=== PATIENT | male | born 1945 | race Caucasian/White ===

== ENCOUNTER 2017-02-19 07:42 | Day surgery (SDC) | payer MEDICARE, BC ==
[2017-02-19] MEDS ORDERED: Lactated Ringers 1,000 ML IV SCH ×2 (07:45→10:00)
[2017-02-19] MEDS ORDERED: Propofol 200 MG/20 ML SDV ONE (09:05)
[2017-02-19] MEDS ORDERED: fentaNYL 100 MCG/2 ML SDV ONE (09:06)
[2017-02-19 11:59] VITALS: BP 123/72
--- NOTE | 2017-02-20 07:04 | OR ---
DATE OF PROCEDURE: 02/19/2017 PREOPERATIVE DIAGNOSIS: History of adenomatous colon polyps. POSTOPERATIVE DIAGNOSIS: Diverticulosis, multiple colon polyps, and history of adenomatous colon polyps. PROCEDURE: Colonoscopy to the cecum with biopsy resection of polyps 75 cm from anal verge, right colon, 2 in the cecum, 2 in the proximal right colon. ANESTHESIA: IV anesthesia with monitored anesthesia care. INDICATION: This 71-year-old white male is referred for a colonoscopy because of a history of adenomatous colon polyps. His last colonoscopic exam he says was done 3 years ago. I counseled him for the procedure including risks and alternatives and he gave his informed consent to proceed. DESCRIPTION OF PROCEDURE: The patient was placed in the left lateral decubitus position. IV anesthesia was administered by the Anesthesia Service. Time-out was held. A rectal exam was performed which showed a large smooth prostate. The flexible video Olympus colonoscope was introduced through his anus, up his rectum, and out his colon all the way to the cecum. En route, we saw multiple left-sided diverticula, there was no bleeding or inflammation associated with them. Additionally at 35 cm from anal verge we saw a small polyp which was removed with the biopsy forceps. Also in the mid right colon we saw another small polyp which was removed with the biopsy forceps. In the cecum we saw 2 polyps which were near each other. They were removed with the biopsy forceps and sent to the laboratory as one specimen. The scope was then slowly withdrawn and examining the mucosa throughout. In the proximal right colon we saw two more polyps adjacent to each other and they were removed with the biopsy forceps and sent to the laboratory as one specimen. The scope was withdrawn further with no other additional new lesion seen. The scope was retroflexed in the rectum with the distal rectum appearing unremarkable. The scope was straightened and removed. He tolerated the procedure well. Isael Slaughter MD /[id number]
== END 2017-02-19 11:20 | disposition home or self-care (01) ==
LOC: JP.SDS 07:42
PROVIDERS: ATTEND Surgery
DX: Z12.11 Encounter for screening for malignant neoplasm of colon (principal); D12.0 Benign neoplasm of cecum; D12.6 Benign neoplasm of colon, unspecified; K57.30 Diverticulosis of large intestine without perforation or abscess without bleeding; I10 Essential (primary) hypertension; K21.9 Gastro-esophageal reflux disease without esophagitis
CPT/HCPCS: 45380; J2704; J3010; J7120; 88305

== ENCOUNTER 2018-03-13 06:21 | Day surgery (SDC) | payer MEDICARE, BC ==
[2018-03-13] MEDS ORDERED: Lactated Ringers 1,000 ML IV SCH (07:00)
[2018-03-13] MEDS ORDERED: fentaNYL 100 MCG/2 ML SDV ONE (07:34)
[2018-03-13] MEDS ORDERED: Propofol 200 MG/20 ML SDV ONE (07:34)
[2018-03-13] MEDS ORDERED: Midazolam 1 MG/ML 2 ML SDV ONE (07:35)
[2018-03-13 09:32] VITALS: BP 124/72
--- NOTE | 2018-03-13 13:55 | OR ---
DATE OF PROCEDURE: 03/13/2018 PREOPERATIVE DIAGNOSIS: History of colon polyps. POSTOPERATIVE DIAGNOSES: 1. Diverticulosis. 2. Two small colon polyps, transverse colon and rectum. 3. History of colon polyps. PROCEDURES PERFORMED: Colonoscopy to the cecum with biopsy resection of 2 small colon polyps. ANESTHESIA: IV anesthesia with monitored anesthesia care. INDICATION: This 72-year-old white male is referred for a colonoscopy because of history of colon polyps. He says he had multiple colon polyps removed about a year ago. I counseled him for the procedure including risks and alternatives, and he gave his informed consent to proceed. DESCRIPTION OF PROCEDURE: The patient was placed in the left lateral decubitus position. IV anesthesia was administered by the Anesthesia Service. Time-out was held. A rectal exam was performed, which was unremarkable. The flexible video Olympus colonoscope was introduced through his anus, up his rectum, and out his colon, all the way to the cecum. En route, we saw multiple left-sided diverticula. There was no bleeding or inflammation associated with them. In addition, in the transverse colon, we saw a smaller polyp, which was removed with the biopsy forceps. Once the cecum was reached, the scope was slowly withdrawn, examining the mucosa throughout. No additional mucosal abnormalities were noted until we reached the midportion the rectum. Here, another small polyp was seen, which was removed with a couple of bites of biopsy forceps. The scope was retroflexed in the rectum with the distal rectum appearing unremarkable. The scope was straightened and removed. He tolerated the procedure well. Isael Slaughter MD /[id number]
== END 2018-03-13 09:30 | disposition home or self-care (01) ==
LOC: JP.SDS 06:21
PROVIDERS: ATTEND Surgery
DX: Z09 Encounter for follow-up examination after completed treatment for conditions other than malignant neoplasm (principal); D12.3 Benign neoplasm of transverse colon; D12.8 Benign neoplasm of rectum; I10 Essential (primary) hypertension; K57.30 Diverticulosis of large intestine without perforation or abscess without bleeding; Z86.010 Personal history of colon polyps; Z79.899 Other long term (current) drug therapy
CPT/HCPCS: 45380; J2250; J2704; J3010; J7120; 88305

== ENCOUNTER 2019-07-15 07:21 | Day surgery (SDC) | payer MEDICARE ==
[2019-07-15] MEDS ORDERED: Sodium Chloride 0.9% 1,000 ML IV SCH (08:00)
[2019-07-15] MEDS ORDERED: Propofol 200 MG/20 ML SDV ONE (08:46)
[2019-07-15] MEDS ORDERED: fentaNYL 100 MCG/2 ML SDV ONE (08:46)
[2019-07-15 10:40] VITALS: BP 135/74; PULSE 54
--- NOTE | 2019-07-15 13:11 | OR ---
DATE OF PROCEDURE: 07/15/2019 SURGEON: Vikash Moore MD PROCEDURE: Esophagogastroduodenoscopy. FINDINGS: Erythema consistent with thrush in distal esophagus. COMPLICATIONS: None. COUNTER INTELLIGENCE TECHNICIAN: None. ANESTHESIA: MAC. PREOPERATIVE DIAGNOSIS: Dysphagia. POSTOPERATIVE DIAGNOSIS: Dysphagia. RISKS: Risks, benefits, alternatives, and limitations including, but not limited to infection, bleeding, and perforation were explained to the patient, who wished to proceed. PROCEDURE IN DETAIL: The patient was placed in left lateral decubitus position. The EGD scope was introduced and advanced atraumatically to second part of the duodenum. Scope was brought back and retroflexed. Moderate sliding hernia was noted. At the GE junction, there was significant erythema and white plaque-like area consistent with probably combination of thrush and/or esophagitis. This was biopsied at least 8 times using cold biopsy forceps. The remainder of esophagus was normal. The patient will be started prophylactically on nystatin. Vikash Moore MD /[id number]
== END 2019-07-15 10:30 | disposition home or self-care (01) ==
LOC: JP.SDS 07:21
PROVIDERS: ATTEND Surgery
DX: R13.10 Dysphagia, unspecified (principal); C16.0 Malignant neoplasm of cardia; K22.711 Barrett's esophagus with high grade dysplasia; K44.9 Diaphragmatic hernia without obstruction or gangrene; I10 Essential (primary) hypertension
CPT/HCPCS: 88305; J2704; J3010; J7030

== ENCOUNTER 2019-10-25 14:12 | Emergency (ER) | payer MEDICARE ==
[2019-10-25 14:29] VITALS: BP 128/52; PULSE 61
--- NOTE | 2019-10-25 14:50 | EDM.PDOC ---
ED HPI GENERAL MEDICAL PROBLEM - General Chief Complaint: Fever Stated Complaint: FEVER/ILLNESS- SENT FROM [facility] IN[facility]US[facility] Time Seen by Provider: 10/25/19 14:30 Source of Information: Reports: Patient, Provider History Limitations: Reports: No Limitations - History of Present Illness INITIAL COMMENTS - FREE TEXT/NARRATIVE: 73-year-old male with esophageal cancer, received his last treatment of chemotherapy and radiation one week ago. He has difficulty swallowing so goes to the infusion center on a regular basis. He thinks he is improving, he is able to swallow some water now but was in the infusion center this afternoon getting some IV fluids when they measured a temperature of 102.8. He feels weak but he always feels weak, he had some mild chills as well. Denies any pain or shortness of breath. They called the oncologist and they recommended him coming to the emergency room. On arrival he still feels weak but otherwise feels his baseline and his temperature is now 99.7. He denies shortness of breath, cough, cold symptoms, nausea vomiting or abdominal pain. Onset: Unknown/Unsure Associated Symptoms: Reports: Fever/Chills, Malaise, Weakness denies Pain Score (Numeric/FACES): 0 - Related Data Allergies Allergy/AdvReac Type Severity Reaction Status Date / Time No Known Allergies Allergy Verified 10/25/19 14:29 Home Meds: Home Meds Widen-3 Fatty Acids [Widen-3] 1,000 mg PO DAILY 02/10/14 [History] Lutein 20 mg PO DAILY 02/14/14 [History] Past Medical History - Past Health History Medical/Surgical History: Denies Medical/Surgical History HEENT History: Reports: Cataract, Hard of Hearing, Macular Degeneration Cardiovascular History: Reports: Hypertension Gastrointestinal History: Reports: Colon Polyp, GERD Musculoskeletal History: Reports: Back Pain, Chronic, Fracture, Osteoarthritis Other Musculoskeletal History: left rot.cuff no surg Oncologic (Cancer) History: Reports: Basal Cell Carcinoma, Esophageal - Infectious Disease History Infectious Disease History: Reports: Chicken Pox, Measles, Mumps - Past Surgical History HEENT Surgical History: Reports: Cataract Surgery, Other (See Below) Other HEENT Surgeries/Procedures: esophageal CA Cardiovascular Surgical History: Reports: None GI Surgical History: Reports: Colonoscopy Musculoskeletal Surgical History: Reports: None Social & Family History - Family History Family Medical History: Noncontributory - Tobacco Use Smoking Status *Q: Never Smoker Second Hand Smoke Exposure: No - Caffeine Use Caffeine Use: Reports: None Other Caffeine Use: 4 cups - Recreational Drug Use Recreational Drug Use: No ED ROS GENERAL - Review of Systems Review Of Systems: See Below Constitutional: Reports: Fever, Malaise, Decreased Appetite HEENT: Reports: Throat Pain (When swallowing, it is improving) Respiratory: Denies: Shortness of Breath, Cough GI/Abdominal: Denies: Abdominal Pain, Nausea, Vomiting Neurological: Reports: Weakness. Denies: Headache ED EXAM, GENERAL - Physical Exam Exam: See Below Exam Limited By: No Limitations General Appearance: Alert, No Apparent Distress, Other (Patient does appear tired but in no distress) Eye Exam: Bilateral Eye: Normal Inspection (No jaundice) Head: Atraumatic Respiratory/Chest: No Respiratory Distress, Lungs Clear Cardiovascular: Regular Rate, Rhythm. No: Tachycardia GI/Abdominal: Soft, Non-Tender Extremities: Normal Inspection. No: Pedal Edema Neurological: Alert, Oriented Psychiatric: Flat Affect Skin Exam: Warm, Dry Course - Vital Signs Last Recorded V/S: Last Vital Signs Temp 100.0 F 10/25/19 16:06 Pulse 61 10/25/19 14:28 Resp 16 10/25/19 14:28 BP 128/52 L 10/25/19 14:28 Pulse Ox 98 10/25/19 14:28 - Orders/Labs/Meds Orders: Active Orders 24 hr Category Date Time Status CULTURE BLOOD [BC] Stat Lab 10/25/19 15:00 Received Labs: Laboratory Tests 10/25/19 10/25/19 10/25/19 Range/Units 15:00 15:00 15:00 WBC 4.2 L (4.5-11.0) K/uL RBC 3.22 L (4.30-5.90) M/uL Hgb 10.0 L (12.0-15.0) g/dL Hct 30.7 L (40.0-54.0) % MCV 95 (80-98) fL MCH 31 (27-31) pg MCHC 33 (32-36) % Plt Count 130 L (150-400) K/uL Neut % (Auto) 78 H (36-66) % Lymph % (Auto) 5 L (24-44) % [place] % (Auto) 17 H (2-6) % Eos % (Auto) 1 L (2-4) % Baso % (Auto) 1 (0-1) % Sodium 131 L (140-148) mmol/L Potassium 3.8 (3.6-5.2) mmol/L Chloride 96 L (100-108) mmol/L Carbon Dioxide 24 (21-32) mmol/L Anion Gap 14.8 H (5.0-14.0) mmol/L BUN 23 H (7-18) mg/dL Creatinine 0.8 (0.8-1.3) mg/dL Est Cr Clr Drug Dosing 78.83 mL/min Estimated GFR (MDRD) > 60 (>60) Glucose 130 H (74-106) mg/dL Lactic Acid 2.0 (0.4-2.0) mmol/L Calcium 8.3 L (8.5-10.1) mg/dL Total Bilirubin 0.5 (0.2-1.0) mg/dL AST 71 H (15-37) U/L ALT 79 H (12-78) U/L Alkaline Phosphatase 93 (46-116) U/L Total Protein 6.8 (6.4-8.2) g/dL Albumin 2.3 L (3.4-5.0) g/dL Globulin 4.5 H (2.3-3.5) g/dL Albumin/Globulin Ratio 0.5 L (1.2-2.2) Meds: Medications Discontinued Medications Generic Name Dose Route Start Last Admin Trade Name Freq PRN Reason Stop Dose Admin Lactated Ringer's 1,000 mls @ 1,000 mls/hr 10/25/19 15:15 10/25/19 15:06 Ringers, Lactated IV 1,000 mls/hr ASDIRECTED [facility] Administration - Re-Assessments/Exams Free Text/Narrative Re-Assessment/Exam: 10/25/19 14:57 Patient was sent for a febrile workup so this was initiated. Blood cultures were drawn from the port, CBC CMP were obtained as well as lactic acid and two- view chest x-ray. Patient is now however afebrile with normal vitals so this will be reassessed when his lab and x-ray are done. 10/25/19 15:06 Patient was taken back for a two-view chest x-ray without difficulty, and in and out of the chair easily and can ambulate. His x-ray looks negative. 10/25/19 16:33 Radiology actually commented that there was a possible small perihilar infiltrate in the right side so the patient was given a course of Zithromax. This was discussed and approved by oncology. White count was 4300. Lactic acid normal at 2.0, and a repeat temperature on discharge was 99 9. Patient felt his normal baseline. He will return if worsening. Departure - Departure Time of Disposition: 16:58 Disposition: Home, Self-Care 01 Clinical Impression: Dehydration Pneumonia Qualifiers: Pneumonia type: due to unspecified organism Laterality: right Lung location: middle lobe of lung Qualified Code(s): J18.9 - Pneumonia, unspecified organism - Discharge Information Instructions: Community-Acquired Pneumonia, Adult, [id number] Referrals: Christopher Sherwood MD [Primary Care Provider] - Forms: ED Department Discharge Care Plan Goals: Continue your current medications and take Zithromax one pill daily for the next 4 days. Recheck as scheduled or return sooner if not improving satisfactorily. Sepsis Event Note - Evaluation Sepsis Screening Result: No Definite Risk - Focused Exam Vital Signs: Vital Signs Temp Pulse Resp BP Pulse Ox 10/25/19 16:06 100.0 F 10/25/19 14:28 99.6 F 61 16 128/52 L 98 Date Exam was Performed: 10/25/19 Time Exam was Performed: 17:19 - My Orders Last 24 Hours: My Active Orders 10/25/19 15:00 CULTURE BLOOD [BC] Stat - Assessment/Plan Last 24 Hours: My Active Orders 10/25/19 15:00 CULTURE BLOOD [BC] Stat
[2019-10-25] MEDS ORDERED: Lactated Ringers 1,000 ML IV SCH ×2 (15:00→15:15)
--- NOTE | 2019-10-25 15:44 | CR ---
CHEST: 2 view CLINICAL HISTORY:Recent chemotherapy, fever COMPARISON:CT 07/23/2019 FINDINGS: Lungs are hyperaerated. Heart size and pulmonary vascularity are normal. There are atherosclerotic changes in the aorta.. Patient has an [id number] catheter from right jugular approach. Tip is in superior vena cava is a minimal patchy density in the right perihilar region. Small pneumonia is not excluded. Impression: Changes of COPD Small patchy density in the right perihilar region may represent a small pneumonic infiltrate
== END 2019-10-25 16:58 | disposition home or self-care (01) ==
LOC: JP.ED 14:12
DX: E86.0 Dehydration (principal); J18.9 Pneumonia, unspecified organism; I10 Essential (primary) hypertension; M19.90 Unspecified osteoarthritis, unspecified site; Z79.899 Other long term (current) drug therapy
CPT/HCPCS: 36415; 71046; 80053; 83605; 85025; 87040; 96360; 99285; J7120; 99284

== ENCOUNTER 2019-10-30 11:42 | Emergency (ER) | payer MEDICARE ==
[2019-10-30 12:20] VITALS: BP 122/62; PULSE 111
--- NOTE | 2019-10-30 13:08 | EDM.PDOC ---
ED HPI GENERAL MEDICAL PROBLEM - General Chief Complaint: General Stated Complaint: WEAKNESS Time Seen by Provider: 10/30/19 13:08 Source of Information: Reports: Patient History Limitations: Reports: No Limitations - History of Present Illness INITIAL COMMENTS - FREE TEXT/NARRATIVE: 73 years old male patient with history of esophageal cancer status post chemotherapy and radiotherapy, presents to the ER with a chief complaint of generalized weakness. Patient was seen last week, , diagnoses pneumonia and sent home was 5 day course of azithromycin. Last dose was yesterday. Stated his cough is about the same mild dry cough. Slightly short of breath. Denies any chest pain. Denies any fever. Denies any abdominal pain. He has chronic diarrhea. Denies any urinary symptom. For the last couple days has been feeling very weak. Denies any focal weakness or numbness anywhere. denies Pain Score (Numeric/FACES): 0 - Related Data Allergies Allergy/AdvReac Type Severity Reaction Status Date / Time No Known Allergies Allergy Verified 10/30/19 11:54 Home Meds: Home Meds Traer-3 Fatty Acids [Traer-3] 1,000 mg PO DAILY 02/10/14 [History] Lutein 20 mg PO DAILY 02/14/14 [History] Past Medical History - Past Health History Medical/Surgical History: Denies Medical/Surgical History HEENT History: Reports: Cataract, Hard of Hearing, Macular Degeneration Cardiovascular History: Reports: Hypertension Respiratory History: Reports: Other (See Below) Other Respiratory History: recent pneumonia Gastrointestinal History: Reports: Colon Polyp, GERD Other Gastrointestinal History: feeding tube. Musculoskeletal History: Reports: Back Pain, Chronic, Fracture, Osteoarthritis Other Musculoskeletal History: left rot.cuff no surg Oncologic (Cancer) History: Reports: Basal Cell Carcinoma, Esophageal - Infectious Disease History Infectious Disease History: Reports: Chicken Pox, Measles, Mumps - Past Surgical History HEENT Surgical History: Reports: Cataract Surgery, Other (See Below) Other HEENT Surgeries/Procedures: esophageal CA Cardiovascular Surgical History: Reports: None GI Surgical History: Reports: Colonoscopy, EGD Musculoskeletal Surgical History: Reports: None Social & Family History - Family History Family Medical History: Noncontributory - Tobacco Use Smoking Status *Q: Never Smoker Second Hand Smoke Exposure: No - Caffeine Use Caffeine Use: Reports: Coffee Other Caffeine Use: 4 cups - Recreational Drug Use Recreational Drug Use: No ED ROS GENERAL - Review of Systems Review Of Systems: Comprehensive ROS is negative, except as noted in HPI. ED EXAM, GENERAL - Physical Exam Exam: See Below Exam Limited By: No Limitations General Appearance: Alert, WD/WN, No Apparent Distress Nose: Normal Inspection, Normal Mucosa, No Blood Throat/Mouth: Normal Inspection, Normal Lips, Normal Teeth, Normal Gums, Normal Oropharynx, Normal Voice, No Airway Compromise Head: Atraumatic, Normocephalic Neck: Normal Inspection, Supple, Non-Tender, Full Range of Motion Respiratory/Chest: No Respiratory Distress, Lungs Clear, Normal Breath Sounds, No Accessory Muscle Use, Chest Non-Tender Cardiovascular: Normal Peripheral Pulses, Regular Rate, Rhythm, No Edema, No Gallop, No JVD, No Murmur, No Rub GI/Abdominal: Normal Bowel Sounds, Soft, Non-Tender, No Organomegaly, No Distention, No Abnormal Bruit, No Mass, Other (Feeding nightly place) Extremities: Normal Inspection, Normal Range of Motion, Non-Tender, Normal Capillary Refill, No Pedal Edema Neurological: Alert, Oriented, CN II-XII Intact, Normal Cognition, Normal Gait, Normal Reflexes, No Motor/Sensory Deficits Skin Exam: Warm, Dry, Intact, Normal Color, No Rash Course - Vital Signs Last Recorded V/S: Last Vital Signs Temp 37.0 C 10/30/19 12:22 Pulse 111 H 10/30/19 12:22 Resp 14 10/30/19 12:22 BP 122/62 10/30/19 12:22 Pulse Ox 97 10/30/19 12:22 - Orders/Labs/Meds Labs: Laboratory Tests 10/30/19 10/30/19 10/30/19 Range/Units 13:09 13:39 13:39 WBC 3.2 L (4.5-11.0) K/uL RBC 2.77 L (4.30-5.90) M/uL Hgb 8.6 L (12.0-15.0) g/dL Hct 26.2 L (40.0-54.0) % MCV 95 (80-98) fL MCH 31 (27-31) pg MCHC 33 (32-36) % Plt Count 135 L (150-400) K/uL Neut % (Auto) 75 H (36-66) % Lymph % (Auto) 9 L (24-44) % Mcleod % (Auto) 12 H (2-6) % Eos % (Auto) 3 (2-4) % Baso % (Auto) 1 (0-1) % Sodium 131 L (140-148) mmol/L Potassium 3.7 (3.6-5.2) mmol/L Chloride 97 L (100-108) mmol/L Carbon Dioxide 24 (21-32) mmol/L Anion Gap 13.7 (5.0-14.0) mmol/L BUN 17 (7-18) mg/dL Creatinine 0.7 L (0.8-1.3) mg/dL Est Cr Clr Drug Dosing 91.18 mL/min Estimated GFR (MDRD) > 60 (>60) Glucose 100 (74-106) mg/dL Lactic Acid 1.8 (0.4-2.0) mmol/L Calcium 7.8 L (8.5-10.1) mg/dL Magnesium 1.9 (1.8-2.4) mg/dL Total Bilirubin 0.4 (0.2-1.0) mg/dL AST 109 H (15-37) U/L ALT 132 H (12-78) U/L Alkaline Phosphatase 98 (46-116) U/L Troponin I < 0.017 (0.000-0.056) ng/mL Total Protein 6.6 (6.4-8.2) g/dL Albumin 1.9 L (3.4-5.0) g/dL Globulin 4.7 H (2.3-3.5) g/dL Albumin/Globulin Ratio 0.4 L (1.2-2.2) TSH, Ultra Sensitive 0.543 (0.358-3.740) uIU/mL Urine Color (YELLOW) Urine Appearance (CLEAR) Urine pH (5.0-8.0) Ur Specific [place] (1.008-1.030) Urine Protein (NEGATIVE) mg/dL Urine Glucose (UA) (NEGATIVE) mg/dL Urine Ketones (NEGATIVE) mg/dL Urine Occult Blood (NEGATIVE) Urine Nitrite (NEGATIVE) Urine Bilirubin (NEGATIVE) Urine Urobilinogen (0.2-1.0) EU/dL Ur Leukocyte Esterase (NEGATIVE) Urine RBC (0-5) Urine WBC (0-5) Ur Epithelial Cells Amorphous Sediment Urine Bacteria Urine Mucus 10/30/19 Range/Units 14:15 WBC (4.5-11.0) K/uL RBC (4.30-5.90) M/uL Hgb (12.0-15.0) g/dL Hct (40.0-54.0) % MCV (80-98) fL MCH (27-31) pg MCHC (32-36) % Plt Count (150-400) K/uL Neut % (Auto) (36-66) % Lymph % (Auto) (24-44) % Mcleod % (Auto) (2-6) % Eos % (Auto) (2-4) % Baso % (Auto) (0-1) % Sodium (140-148) mmol/L Potassium (3.6-5.2) mmol/L Chloride (100-108) mmol/L Carbon Dioxide (21-32) mmol/L Anion Gap (5.0-14.0) mmol/L BUN (7-18) mg/dL Creatinine (0.8-1.3) mg/dL Est Cr Clr Drug Dosing mL/min Estimated GFR (MDRD) (>60) Glucose (74-106) mg/dL Lactic Acid (0.4-2.0) mmol/L Calcium (8.5-10.1) mg/dL Magnesium (1.8-2.4) mg/dL Total Bilirubin (0.2-1.0) mg/dL AST (15-37) U/L ALT (12-78) U/L Alkaline Phosphatase (46-116) U/L Troponin I (0.000-0.056) ng/mL Total Protein (6.4-8.2) g/dL Albumin (3.4-5.0) g/dL Globulin (2.3-3.5) g/dL Albumin/Globulin Ratio (1.2-2.2) TSH, Ultra Sensitive (0.358-3.740) uIU/mL Urine Color Yellow (YELLOW) Urine Appearance Clear (CLEAR) Urine pH 6.5 (5.0-8.0) Ur Specific [place] 1.015 (1.008-1.030) Urine Protein Trace H (NEGATIVE) mg/dL Urine Glucose (UA) Negative (NEGATIVE) mg/dL Urine Ketones Negative (NEGATIVE) mg/dL Urine Occult Blood Negative (NEGATIVE) Urine Nitrite Negative (NEGATIVE) Urine Bilirubin Negative (NEGATIVE) Urine Urobilinogen >=8.0 H (0.2-1.0) EU/dL Ur Leukocyte Esterase Negative (NEGATIVE) Urine RBC 0-5 (0-5) Urine WBC 0-5 (0-5) Ur Epithelial Cells Rare Amorphous Sediment Not seen Urine Bacteria Few Urine Mucus Moderate Meds: Medications Discontinued Medications Generic Name Dose Route Start Last Admin Trade Name Andrae PRN Reason Stop Dose Admin Sodium Chloride 1,000 mls @ 999 mls/hr 10/30/19 13:10 10/30/19 13:10 Normal Saline IV 10/30/19 14:10 999 mls/hr .BOLUS STA Administration - Re-Assessments/Exams Free Text/Narrative Re-Assessment/Exam: 10/30/19 13:18 Patient was seen and examined shortly after arrival. The stable. Given 1 L normal saline bolus. Lab and imaging reviewed with the patient. Hemoglobin 8.4. Which could be contributing to his weakness. No active bleeding anywhere. Denies any black stool. There is most likely related to his cancer, with radiotherapy. Also slightly elevated LFT that has been elevated before. I did offer them admission for further management. Patient refused admission. stated that he has strong enough, stable on his feet and able to go back home and sees Dr. luis coming Friday. Advised come back for any concern or any worsening symptom. Review his lab results with his primary doctor. Rest and stay well- hydrated. Patient agrees with the plan. Stable for discharge. His to sister is staying very close to home. 10/30/19 19:19 Departure - Departure Time of Disposition: 15:58 Disposition: Home, Self-Care 01 Condition: Good, Fair Clinical Impression: Generalized weakness, Anemia, Elevated LFTs - Discharge Information *PRESCRIPTION DRUG MONITORING PROGRAM REVIEWED*: Not Applicable *COPY OF PRESCRIPTION DRUG MONITORING REPORT IN PATIENT JUSTEN: Not Applicable Instructions: Weakness, [id number], Anemia, Fatigue, Liver Function Tests Referrals: PCP,None [Primary Care Provider] - Forms: ED Department Discharge Additional Instructions: Rest and stay well-hydrated Close follow-up with PCP, keep your appointment this coming Friday Discuss low hemoglobin, elevated LFT Come back for any concern or any worsening symptom Sepsis Event Note - Evaluation Sepsis Screening Result: No Definite Risk - Focused Exam Vital Signs: Vital Signs Temp Pulse Resp BP Pulse Ox 10/30/19 12:22 37.0 C 111 H 14 122/62 97 10/30/19 12:19 37.0 C 111 H 14 122/62 97 Date Exam was Performed: 10/30/19 Time Exam was Performed: 19:18 - Assessment/Plan Plan: Rest and stay well-hydrated Close follow-up with PCP, keep your appointment this coming Friday Discuss low hemoglobin, elevated LFT Come back for any concern or any worsening symptom
[2019-10-30] MEDS ORDERED: Sodium Chloride 0.9% 1,000 ML IV STA (13:10)
--- NOTE | 2019-10-30 15:49 | CRLCR ---
INDICATIONS: Cough. History of esophageal cancer. TECHNIQUE: Chest 2 view. COMPARISON: Chest radiograph 10/25/2019. FINDINGS: Right-sided Port-A-Cath terminates in the SVC. No pneumothorax, pleural effusion or focal airspace consolidation. Cardiac and mediastinal contours are unchanged. Upper abdomen and osseous structures as imaged show no acute abnormality. IMPRESSION: No radiographic evidence of pneumonia. Dictated by Nate Pierre MD @ 10/30/2019 3:48:19 PM Dictated by: Nate Pierre MD @ 10/30/2019 15:48:26 (Electronically Signed)
== END 2019-10-30 16:25 | disposition home or self-care (01) ==
LOC: JP.ED 11:42
DX: R53.1 Weakness (principal); D64.9 Anemia, unspecified; R79.89 Other specified abnormal findings of blood chemistry; I10 Essential (primary) hypertension; M19.90 Unspecified osteoarthritis, unspecified site
CPT/HCPCS: 36415; 71046; 80053; 81001; 83605; 83735; 84443; 84484; 85025; 96360; 99285; J7030

== ENCOUNTER 2019-12-18 14:34 | Emergency (ER) | payer MEDICARE ==
[2019-12-18] MEDS ORDERED: Lactated Ringers 1,000 ML IV ONE (16:15)
[2019-12-18] MEDS ORDERED: Sodium Chloride 0.9% 10 ML Syringe FLUSH PRN (16:15)
[2019-12-18 16:35] VITALS: PULSE 87
[2019-12-18 17:30] VITALS: BP 123/73
--- NOTE | 2019-12-18 18:07 | EDM.PDOC ---
ED HPI GENERAL MEDICAL PROBLEM - General Chief Complaint: General Stated Complaint: FATIGUED Time Seen by Provider: 12/18/19 16:14 Source of Information: Reports: Patient History Limitations: Reports: No Limitations - History of Present Illness INITIAL COMMENTS - FREE TEXT/NARRATIVE: The patient presents concerned that he is dehydrated because he has difficulty swallowing. He has known esophageal cancer and recently underwent surgery at [facility] in [place] by to been to remove his cancerous esophagus and pole stomach up and a new anastomotic connection. Since that time, it is somewhat uncomfortable to swallow although he states is actually easier to swallow food then it is water. He takes small amounts frequently, he cannot swallow a large volume of either food or water. No vomiting. He has felt poorly the last couple of days and was concerned that he was more dehydrated. No fever or chills. No diarrhea. No cough or shortness of breath. Onset: Gradual Duration: Day(s): Location: Reports: Abdomen Severity: Mild Improves with: Reports: None Worsens with: Reports: None - Related Data Allergies Allergy/AdvReac Type Severity Reaction Status Date / Time No Known Allergies Allergy Verified 10/30/19 11:54 Home Meds: Home Meds [place]-3 Fatty Acids [[place]-3] 1,000 mg PO DAILY 02/10/14 [History] Lutein 20 mg PO DAILY 02/14/14 [History] Triamterene/Hydrochlorothiazid [Triamterene-HCTZ 37.5-25 MG] 1 tab PO DAILY 06/29 [History] Past Medical History - Past Health History Medical/Surgical History: Denies Medical/Surgical History HEENT History: Reports: Cataract, Hard of Hearing, Macular Degeneration Cardiovascular History: Reports: Hypertension Respiratory History: Reports: Other (See Below) Other Respiratory History: recent pneumonia Gastrointestinal History: Reports: Colon Polyp, GERD Other Gastrointestinal History: feeding tube. Musculoskeletal History: Reports: Back Pain, Chronic, Fracture, Osteoarthritis Other Musculoskeletal History: left rot.cuff no surg Oncologic (Cancer) History: Reports: Basal Cell Carcinoma, Esophageal - Infectious Disease History Infectious Disease History: Reports: Chicken Pox - Past Surgical History HEENT Surgical History: Reports: Cataract Surgery, Other (See Below) Other HEENT Surgeries/Procedures: esophageal CA Cardiovascular Surgical History: Reports: None GI Surgical History: Reports: Colonoscopy, EGD Musculoskeletal Surgical History: Reports: None Social & Family History - Family History Family Medical History: Noncontributory - Tobacco Use Smoking Status *Q: Never Smoker - Caffeine Use Caffeine Use: Reports: Coffee Other Caffeine Use: 4 cups - Recreational Drug Use Recreational Drug Use: No ED ROS GENERAL - Review of Systems Review Of Systems: See Below Constitutional: Reports: Malaise, Weakness, Decreased Appetite, Weight Loss. Denies: Fever, Chills HEENT: Reports: Throat Pain. Denies: Throat Swelling Respiratory: Reports: Shortness of Breath Cardiovascular: Reports: No Symptoms GI/Abdominal: Reports: Decreased Appetite, Difficulty Swallowing. Denies: Abdominal Pain, Black Stool : Reports: No Symptoms Musculoskeletal: Reports: No Symptoms ED EXAM, GENERAL - Physical Exam Exam: See Below Exam Limited By: No Limitations General Appearance: Alert (Conversant. In no distress.) Throat/Mouth: Normal Oropharynx, No Airway Compromise. No: Dysphagia Neck: Normal Inspection Respiratory/Chest: No Respiratory Distress Cardiovascular: Regular Rate, Rhythm GI/Abdominal: Soft Course - Vital Signs Last Recorded V/S: Last Vital Signs Temp 36.2 C 12/18/19 16:12 Pulse 87 12/18/19 17:30 Resp 16 12/18/19 17:30 BP 123/73 12/18/19 17:30 Pulse Ox 96 12/18/19 17:30 - Orders/Labs/Meds Orders: Active Orders 24 hr Category Date Time Status Saline Lock Insert [OM.PC] Routine Oth 12/18/19 16:15 Ordered Labs: Laboratory Tests 12/18/19 12/18/19 Range/Units 16:29 16:29 WBC 4.7 (4.5-11.0) K/uL RBC 3.24 L (4.30-5.90) M/uL Hgb 10.1 L (12.0-15.0) g/dL Hct 32.4 L (40.0-54.0) % MCV 100 H (80-98) fL MCH 31 (27-31) pg MCHC 31 L (32-36) % Plt Count 353 (150-400) K/uL Neut % (Auto) 73 H (36-66) % Lymph % (Auto) 9 L (24-44) % [place] % (Auto) 12 H (2-6) % Eos % (Auto) 5 H (2-4) % Baso % (Auto) 0 (0-1) % Sodium 141 (140-148) mmol/L Potassium 3.7 (3.6-5.2) mmol/L Chloride 106 (100-108) mmol/L Carbon Dioxide 24 (21-32) mmol/L Anion Gap 11.2 (5.0-14.0) mmol/L BUN 14 (7-18) mg/dL Creatinine 0.7 L (0.8-1.3) mg/dL Est Cr Clr Drug Dosing 89.78 mL/min Estimated GFR (MDRD) > 60 (>60) Glucose 102 (74-106) mg/dL Calcium 8.4 L (8.5-10.1) mg/dL Total Bilirubin 0.2 (0.2-1.0) mg/dL AST 50 H (15-37) U/L ALT 59 (12-78) U/L Alkaline Phosphatase 115 (46-116) U/L Total Protein 6.2 L (6.4-8.2) g/dL Albumin 2.0 L (3.4-5.0) g/dL Globulin 4.2 H (2.3-3.5) g/dL Albumin/Globulin Ratio 0.5 L (1.2-2.2) Meds: Medications Discontinued Medications Generic Name Dose Route Start Last Admin Trade Name Freq PRN Reason Stop Dose Admin Heparin Sodium (Porcine) 300 units 12/18/19 18:08 Heparin Lock Flush 100 Units/Ml FLUSH ASDIRECTED PRN IV Use Lactated Ringer's 1,000 mls @ 999 mls/hr 12/18/19 16:15 12/18/19 16:29 Ringers, Lactated IV 12/18/19 17:15 999 mls/hr BOLUS ONE Administration Sodium Chloride 10 ml 12/18/19 16:15 12/18/19 16:29 Saline Flush FLUSH 10 ml ASDIRECTED PRN Administration Keep Vein Open - Re-Assessments/Exams Free Text/Narrative Re-Assessment/Exam: 12/18/19 21:42 Patient will be given 1 L of lactated Ringer's by rapid infusion while checking basic labs. He wants to drink some water and I think that's reasonable as well. If things look good we will discharge home following rehydration. He felt much better after his liter of fluid and had no new concerns. Departure - Departure Time of Disposition: 18:08 Disposition: Home, Self-Care 01 Condition: Good Clinical Impression: Dysphagia Qualifiers: Dysphagia type: unspecified Qualified Code(s): R13.10 - Dysphagia, unspecified - Discharge Information *PRESCRIPTION DRUG MONITORING PROGRAM REVIEWED*: Not Applicable *COPY OF PRESCRIPTION DRUG MONITORING REPORT IN PATIENT JUSTEN: Not Applicable Instructions: Dehydration, Adult, [id number] Referrals: Christopher Sherwood MD [Primary Care Provider] - Forms: ED Department Discharge Additional Instructions: Continue rehydrating at home taking small amounts frequently. Continue food intake to work on building up your reserve. Return to ER if feeling worse in anyway. Sepsis Event Note - Evaluation Sepsis Screening Result: No Definite Risk - Focused Exam Vital Signs: Vital Signs Temp Pulse Resp BP Pulse Ox 12/18/19 17:30 87 16 123/73 96 12/18/19 16:35 87 104/77 93 L 12/18/19 16:12 36.2 C 97 16 120/81 95 Date Exam was Performed: 12/18/19 Time Exam was Performed: 21:39 - My Orders Last 24 Hours: My Active Orders 12/18/19 16:15 Saline Lock Insert [OM.PC] Routine - Assessment/Plan Last 24 Hours: My Active Orders 12/18/19 16:15 Saline Lock Insert [OM.PC] Routine
== END 2019-12-18 18:17 | disposition home or self-care (01) ==
LOC: JP.ED 14:34
DX: R13.10 Dysphagia, unspecified (principal); I10 Essential (primary) hypertension; Z85.828 Personal history of other malignant neoplasm of skin
CPT/HCPCS: 36415; 80053; 85025; 96360; 99283; 99284; J7120

== ENCOUNTER 2021-06-21 12:26 | Emergency (ER) | payer MEDICARE ==
[2021-06-21] MEDS ORDERED: Ondansetron 4 MG Tab.DIS PO ONE (12:30)
--- NOTE | 2021-06-21 12:40 | EDM.PDOC ---
ED HPI GENERAL MEDICAL PROBLEM - General Chief Complaint: Chest Pain Stated Complaint: CHEST PAIN Time Seen by Provider: 06/21/21 12:39 Source of Information: Reports: Patient, Old Records History Limitations: Reports: No Limitations - History of Present Illness INITIAL COMMENTS - FREE TEXT/NARRATIVE: 75 yo male with no known hx of CAD presents with onset of CP about 0800h today while eating breakfast. Since then the pain is less, but he has nausea when he moves. He denies vertigo. Some increased in pain with deep breathing. No SOB or calf pain. He did take his morning meds and keep them down today. Pain began in his L arm, that is now gone. Onset: Today, Sudden Onset Date: 06/21/21 Duration: Hour(s):, Improving Location: Reports: Chest Quality: Reports: Dull Severity: Moderate Improves with: Reports: Other (? time) Worsens with: Reports: Other (unsure) Context: Reports: Other (See HPI) Associated Symptoms: Reports: Chest Pain, Nausea/Vomiting, Other (L arm pain) Treatments TRADE CLERK: Reports: Other (see below) (none) Chest Pain Score (Numeric/FACES): 8 - Related Data Allergies Allergy/AdvReac Type Severity Reaction Status Date / Time No Known Allergies Allergy Verified 06/21/21 12:40 Home Meds: Home Meds [place]-3 Fatty Acids [[place]-3] 1,000 mg PO DAILY 02/10/14 [History] Lutein 20 mg PO DAILY 02/14/14 [History] Triamterene/Hydrochlorothiazid [Triamterene-HCTZ 37.5-25 MG] 1 tab PO DAILY 12/18/19 [History] Apixaban [Eliquis] 5 mg PO DAILY 06/21/21 [History] Metoprolol Succinate [Toprol XL] 12.5 mg PO DAILY 06/21/21 [History] Omeprazole 20 mg PO DAILY 06/21/21 [History] Ondansetron [Zofran ODT] 4 mg PO Q6H PRN #5 tab.dis 06/21/21 [Rx] Past Medical History - Past Health History Medical/Surgical History: Denies Medical/Surgical History HEENT History: Reports: Cataract, Hard of Hearing, Macular Degeneration Cardiovascular History: Reports: Hypertension Respiratory History: Reports: Other (See Below) Other Respiratory History: recent pneumonia Gastrointestinal History: Reports: Colon Polyp, GERD Other Gastrointestinal History: feeding tube. Musculoskeletal History: Reports: Back Pain, Chronic, Fracture, Osteoarthritis Other Musculoskeletal History: left rot.cuff no surg Oncologic (Cancer) History: Reports: Basal Cell Carcinoma, Esophageal - Infectious Disease History Infectious Disease History: Reports: Chicken Pox - Past Surgical History HEENT Surgical History: Reports: Cataract Surgery, Other (See Below) Other HEENT Surgeries/Procedures: esophageal CA Cardiovascular Surgical History: Reports: None GI Surgical History: Reports: Colonoscopy, EGD Musculoskeletal Surgical History: Reports: None Social & Family History - Family History Family Medical History: No Pertinent Family History - Caffeine Use Caffeine Use: Reports: Coffee Other Caffeine Use: 4 cups ED ROS GENERAL - Review of Systems Review Of Systems: See Below Constitutional: Reports: No Symptoms HEENT: Reports: No Symptoms Respiratory: Reports: No Symptoms Cardiovascular: Reports: Chest Pain Endocrine: Reports: No Symptoms GI/Abdominal: Reports: Nausea, Vomiting. Denies: Abdominal Pain Musculoskeletal: Reports: No Symptoms Skin: Reports: No Symptoms Neurological: Reports: No Symptoms ED EXAM, GENERAL - Physical Exam Exam: See Below Exam Limited By: No Limitations General Appearance: Alert, WD/WN, No Apparent Distress Eye Exam: Bilateral Eye: Normal Inspection Ears: Normal External Exam, Normal Canal, Hearing Grossly Normal Ear Exam: Bilateral Ear: Auricle Normal, Canal Normal Nose: Normal Inspection, No Blood Throat/Mouth: Normal Inspection, Normal Lips, Normal Oropharynx, Normal Voice, No Airway Compromise Head: Atraumatic, Normocephalic Neck: Normal Inspection Respiratory/Chest: No Respiratory Distress, Lungs Clear, Normal Breath Sounds, No Accessory Muscle Use Cardiovascular: Regular Rate, Rhythm, No Edema GI/Abdominal: Normal Bowel Sounds, Soft, Non-Tender, No Distention Back Exam: Normal Inspection. No: CVA Tenderness (R), CVA Tenderness (L) Extremities: Normal Inspection, Normal Range of Motion, Non-Tender Neurological: Alert, Oriented, CN II-XII Intact, Normal Cognition, No Motor/Sensory Deficits Psychiatric: Normal Affect, Normal Mood Skin Exam: Warm, Dry, Intact, Normal Color, No Rash #1 Interpretation EKG Date: 06/21/21 Time: 12:30 Rhythm: NSR Rate (Beats/Min): 117 [place]: Normal P-Wave: Present QRS: Normal ST-T: Normal QT: Normal Comparison: NA - No Prior EKG Course - Vital Signs Last Recorded V/S: Last Vital Signs Temp 36.3 C 06/21/21 12:55 Pulse 94 06/21/21 15:55 Resp 24 H 06/21/21 15:55 BP 116/70 06/21/21 15:55 Pulse Ox 93 L 06/21/21 15:55 - Orders/Labs/Meds Orders: Active Orders 24 hr Category Date Time Status Cardiac Monitoring [RC] .As Directed Care 06/21/21 12:35 Active EKG Documentation Completion [RC] ASDIRECTED Care 06/21/21 12:30 Active Sodium Chloride 0.9% [Saline Flush] Med 06/21/21 12:41 Active 10 ml FLUSH ASDIRECTED PRN Saline Lock Insert [OM.PC] Routine Oth 06/21/21 12:41 Ordered EKG 12 Lead [EK] Routine Ther 06/21/21 12:30 Ordered Medication Orders Sodium Chloride (Sodium Chloride 0.9% 10 Ml Syringe) 10 ml FLUSH ASDIRECTED PRN PRN Reason: Keep Vein Open Last Admin: 06/21/21 12:55 Dose: 10 ml Documented by: [id number] Labs: Laboratory Tests 06/21/21 06/21/21 06/21/21 Range/Units 12:40 12:40 12:40 WBC 10.7 (4.5-11.0) K/uL RBC 5.25 (4.30-5.90) M/uL Hgb 16.3 H D (12.0-15.0) g/dL Hct 48.5 (40.0-54.0) % MCV 92 (80-98) fL MCH 31 (27-31) pg MCHC 34 (32-36) % Plt Count 210 (150-400) K/uL D-Dimer, Quantitative 415.63 (0.0-500.0) ng/mL Sodium 136 L (140-148) mmol/L Potassium 3.9 (3.6-5.2) mmol/L Chloride 99 L (100-108) mmol/L Carbon Dioxide 23 (21-32) mmol/L Anion Gap 17.9 H (5.0-14.0) mmol/L BUN 10 (7-18) mg/dL Creatinine 1.1 D (0.8-1.3) mg/dL Est Cr Clr Drug Dosing 56.24 mL/min Estimated GFR (MDRD) > 60 (>60) Glucose 141 H (74-106) mg/dL Calcium 8.7 (8.5-10.1) mg/dL Troponin I < 0.017 (0.000-0.056) ng/mL Urine Color (YELLOW) Urine Appearance (CLEAR) Urine pH (5.0-8.0) Ur Specific [place] (1.008-1.030) Urine Protein (NEGATIVE) mg/dL Urine Glucose (UA) (NEGATIVE) mg/dL Urine Ketones (NEGATIVE) mg/dL Urine Occult Blood (NEGATIVE) Urine Nitrite (NEGATIVE) Urine Bilirubin (NEGATIVE) Urine Urobilinogen (0.2-1.0) EU/dL Ur Leukocyte Esterase (NEGATIVE) Urine RBC (0-5) Urine WBC (0-5) Ur Epithelial Cells Amorphous Sediment Urine Bacteria Urine Mucus 06/21/21 06/21/21 Range/Units 14:33 15:15 WBC (4.5-11.0) K/uL RBC (4.30-5.90) M/uL Hgb (12.0-15.0) g/dL Hct (40.0-54.0) % MCV (80-98) fL MCH (27-31) pg MCHC (32-36) % Plt Count (150-400) K/uL D-Dimer, Quantitative (0.0-500.0) ng/mL Sodium (140-148) mmol/L Potassium (3.6-5.2) mmol/L Chloride (100-108) mmol/L Carbon Dioxide (21-32) mmol/L Anion Gap (5.0-14.0) mmol/L BUN (7-18) mg/dL Creatinine (0.8-1.3) mg/dL Est Cr Clr Drug Dosing mL/min Estimated GFR (MDRD) (>60) Glucose (74-106) mg/dL Calcium (8.5-10.1) mg/dL Troponin I < 0.017 (0.000-0.056) ng/mL Urine Color Yellow (YELLOW) Urine Appearance Clear (CLEAR) Urine pH 6.0 (5.0-8.0) Ur Specific [place] 1.020 (1.008-1.030) Urine Protein Negative (NEGATIVE) mg/dL Urine Glucose (UA) Negative (NEGATIVE) mg/dL Urine Ketones Trace H (NEGATIVE) mg/dL Urine Occult Blood Moderate H (NEGATIVE) Urine Nitrite Negative (NEGATIVE) Urine Bilirubin Negative (NEGATIVE) Urine Urobilinogen 0.2 (0.2-1.0) EU/dL Ur Leukocyte Esterase Negative (NEGATIVE) Urine RBC 5-10 H (0-5) Urine WBC 0-5 (0-5) Ur Epithelial Cells Not seen Amorphous Sediment Rare Urine Bacteria Rare Urine Mucus Occasional Meds: Medications Generic Name Dose Route Start Last Admin Trade Name Freq PRN Reason Stop Dose Admin Sodium Chloride 10 ml 06/21/21 12:41 06/21/21 12:55 Sodium Chloride 0.9% 10 Ml Syringe FLUSH 10 ml ASDIRECTED PRN Administration Keep Vein Open Discontinued Medications Generic Name Dose Route Start Last Admin Trade Name Freq PRN Reason Stop Dose Admin Acetaminophen 1,000 mg 06/21/21 16:08 06/21/21 16:12 Acetaminophen 500 Mg Tab PO 06/21/21 16:09 1,000 mg ONETIME ONE Administration Ondansetron HCl 4 mg 06/21/21 12:30 06/21/21 12:50 Ondansetron 4 Mg Tab.Dis PO 06/21/21 12:31 4 mg ONETIME ONE Administration - Re-Assessments/Exams Free Text/Narrative Re-Assessment/Exam: 06/21/21 16:45 No sx return with ambulation in the ER Departure - Departure Time of Disposition: 16:45 Disposition: Home, Self-Care 01 Condition: Good Clinical Impression: Nonspecific chest pain Prescriptions: Ondansetron [Zofran ODT] 4 mg PO Q6H PRN #5 tab.dis PRN Reason: Nausea Instructions: Nonspecific Chest Pain, Adult, [id number] Referrals: PCP,None [Primary Care Provider] - Forms: ED Department Discharge Additional Instructions: Continue your usual medications. Use Zofran for nausea. Return as needed. Sepsis Event Note (ED) - Focused Exam Vital Signs: Vital Signs Temp Pulse Resp BP Pulse Ox 06/21/21 15:55 94 24 H 116/70 93 L 06/21/21 14:21 99 23 H 114/73 96 06/21/21 13:23 108 H 26 H 114/75 93 L 06/21/21 13:06 107 H 120/73 06/21/21 12:55 36.3 C 118 H 18 96 06/21/21 12:51 109 H 125/78 06/21/21 12:36 114 H 18 148/99 H 93 L 06/21/21 12:34 36.3 C 118 H 18 96 - My Orders Last 24 Hours: My Active Orders 06/21/21 12:30 EKG Documentation Completion [RC] ASDIRECTED EKG 12 Lead [EK] Routine 06/21/21 12:35 Cardiac Monitoring [RC] .As Directed 06/21/21 12:41 Sodium Chloride 0.9% [Saline Flush] 10 ml FLUSH ASDIRECTED PRN Saline Lock Insert [OM.PC] Routine - Assessment/Plan Last 24 Hours: My Active Orders 06/21/21 12:30 EKG Documentation Completion [RC] ASDIRECTED EKG 12 Lead [EK] Routine 06/21/21 12:35 Cardiac Monitoring [RC] .As Directed 06/21/21 12:41 Sodium Chloride 0.9% [Saline Flush] 10 ml FLUSH ASDIRECTED PRN Saline Lock Insert [OM.PC] Routine
[2021-06-21] MEDS ORDERED: Sodium Chloride 0.9% 10 ML Syringe FLUSH PRN (12:41)
[2021-06-21 15:56] VITALS: BP 116/70; PULSE 94
[2021-06-21] MEDS ORDERED: Acetaminophen 500 MG Tab PO ONE (16:08)
== END 2021-06-21 16:59 | disposition home or self-care (01) ==
LOC: JP.ED 12:26
DX: R07.9 Chest pain, unspecified (principal); I10 Essential (primary) hypertension; K21.9 Gastro-esophageal reflux disease without esophagitis; Z86.79 Personal history of other diseases of the circulatory system; Z79.01 Long term (current) use of anticoagulants; Z79.899 Other long term (current) drug therapy
CPT/HCPCS: 36415; 80048; 81001; 84484; 85027; 85379; 93005; 99285; A9270

== ENCOUNTER 2023-05-04 12:54 | Emergency (ER) | payer MEDICARE ==
[2023-05-04] MEDS ORDERED: Ondansetron 4 MG Tab.DIS PO ONE (13:46)
[2023-05-04 13:59] LABS: BASOPHILS ABSOLUTE AUTO 0.03 K/uL (0.00-0.10); BASOPHILS PERCENT AUTO 0.3 % (0.1-1.3); EOSINOPHILS ABSOLUTE AUTO 0.02 K/uL (0.00-0.40); EOSINOPHILS PERCENT AUTO 0.2 % (0.0-5.4); HEMATOCRIT 47.5 % (38.4-49.7); HEMOGLOBIN 16.8 g/dL (12.9-16.9); IMMATURE GRAN ABSOLUTE AUTO 0.02 K/uL (0.00-0.23); IMMATURE GRAN PERCENT AUTO 0.2 % (0.0-0.7); LYMPHOCYTES ABSOLUTE AUTO 0.45 K/uL (0.8-3.3); LYMPHOCYTES PERCENT AUTO 5.2 % (11.4-47.7); MEAN CORPUSCULAR HEMOGLOBIN 32.5 pg (31.6-35.5); MEAN CORPUSCULAR HGB CONC 35.4 g/dL (31.6-35.5); MEAN CORPUSCULAR VOLUME 91.9 fL (81.4-99.0); MONOCYTES ABSOLUTE AUTO 0.47 K/uL (0.20-0.90); MONOCYTES PERCENT AUTO 5.4 % (3.3-12.6); NEUTROPHILS ABSOLUTE AUTO 7.67 K/uL (1.0-7.6); NEUTROPHILS PERCENT AUTO 88.7 % (40.0-78.1); PLATELET COUNT,PLT 156 K/uL (130-375); RED BLOOD CELL COUNT 5.17 M/uL (4.14-5.76); WHITE BLOOD CELL COUNT,WBC 8.7 K/uL (3.2-11.0)
[2023-05-04 14:27] LABS: A/G RATIO 0.8 (1.2-2.2); ALANINE AMINOTRANSFERASE,ALT 45 U/L (12-78); ALBUMIN 3.2 g/dL (3.4-5.0); ALKALINE PHOSPHATASE 98 U/L (46-116); ASPARTATE AMNIOTRANSFERASE,AST 31 U/L (15-37); BILIRUBIN TOTAL 1.1 mg/dL (0.2-1.0); BLOOD UREA NITROGEN,BUN 10 mg/dL (7-18); CALCIUM 8.7 mg/dL (8.5-10.1); CARBON DIOXIDE,CO2 26 mmol/L (21-32); CHLORIDE,CL 99 mmol/L (100-108); CREATININE 1.1 mg/dL (0.8-1.3); EST CRCL DRUG DOSING (CG) 54.45 mL/min; ESTIMATED GFR 68 mL/min (>60); GLUCOSE RANDOM 145 mg/dL (74-106); PROTEIN TOTAL,TP 7.1 g/dL (6.4-8.2); SODIUM,NA 133 mmol/L (140-148)
[2023-05-04 15:15] VITALS: BP 116/70; PULSE 84
== END 2023-05-04 15:47 | disposition home or self-care (01) ==
LOC: JP.ED 12:54
DX: E86.0 Dehydration (principal); R53.1 Weakness; I10 Essential (primary) hypertension; Z79.01 Long term (current) use of anticoagulants; Z79.899 Other long term (current) drug therapy
CPT/HCPCS: 36415; 80053; 85025; 99284; Q0162

== ENCOUNTER 2025-05-18 13:54 | Emergency (ER) | payer MEDICARE ==
[2025-05-18 14:27] LABS: BASOPHILS ABSOLUTE AUTO 0.04 K/uL (0.00-0.10); BASOPHILS PERCENT AUTO 0.6 % (0.1-1.3); EOSINOPHILS ABSOLUTE AUTO 0.11 K/uL (0.00-0.40); EOSINOPHILS PERCENT AUTO 1.6 % (0.0-5.4); IMMATURE GRAN PERCENT AUTO 0.1 % (0.0-0.7); LYMPHOCYTES ABSOLUTE AUTO 1.48 K/uL (0.8-3.3); LYMPHOCYTES PERCENT AUTO 21.4 % (11.4-47.7); MONOCYTES ABSOLUTE AUTO 0.61 K/uL (0.20-0.90); MONOCYTES PERCENT AUTO 8.8 % (3.3-12.6); NEUTROPHILS ABSOLUTE AUTO 4.65 K/uL (1.0-7.6); NEUTROPHILS PERCENT AUTO 67.5 % (40.0-78.1); PLATELET COUNT,PLT 157 K/uL (130-375); RED BLOOD CELL COUNT 4.96 M/uL (4.14-5.76); WHITE BLOOD CELL COUNT,WBC 6.9 K/uL (3.2-11.0)
[2025-05-18 14:28] LABS: IMMATURE GRAN ABSOLUTE AUTO 0.01 K/uL (0.00-0.23)
[2025-05-18 14:56] LABS: A/G RATIO 0.9 (1.2-2.2); ALANINE AMINOTRANSFERASE,ALT 43 U/L (12-78); ASPARTATE AMNIOTRANSFERASE,AST 26 U/L (15-37); BILIRUBIN TOTAL 0.9 mg/dL (0.2-1.0); BLOOD UREA NITROGEN,BUN 15 mg/dL (7-18); CARBON DIOXIDE,CO2 27 mmol/L (21-32); CHLORIDE,CL 101 mmol/L (100-108); CREATININE 1.2 mg/dL (0.8-1.3); EST CRCL DRUG DOSING (CG) 55.75 mL/min; ESTIMATED GFR 61 mL/min (>60); GLUCOSE RANDOM 118 mg/dL (74-106); POTASSIUM,K 4.0 mmol/L (3.6-5.2); PRO B-TYPE NATRIUR PEPT,BNPPRO 539 pg/mL (5-450); PROTEIN TOTAL,TP 7.0 g/dL (6.4-8.2); SODIUM,NA 134 mmol/L (140-148); TSH ULTRASENSITIVE 1.523 uIU/mL (0.358-3.740)
[2025-05-18 15:11] VITALS: BP 120/75; PULSE 76
== END 2025-05-18 16:08 | disposition home or self-care (01) ==
LOC: JP.ED 13:54
DX: I47.20 Ventricular tachycardia, unspecified (principal); I10 Essential (primary) hypertension; K21.9 Gastro-esophageal reflux disease without esophagitis; Z79.01 Long term (current) use of anticoagulants; Z79.899 Other long term (current) drug therapy
CPT/HCPCS: 36415; 71046; 71046-26; 80053; 83605; 83735; 83880; 84443; 84484; 85025; 85379; 99285